=== PATIENT | male | born 1960 ===

== ENCOUNTER 2018-02-07 17:22 | Emergency (ER) | payer OTHER ==
[~2018-02-07] VITALS: Ht 167.6 cm; Wt 108.9 kg
[~2018-02-07 17:22] MED LIST: ALBUTEROL2.5 MG/3 M IH; CATAFLAM50 MG PO; FLONASE16 GM NS; FLOVENT DISKU250 MCG IH; GILTUSS TR TAB1 EACH PO; HUMIBID DM TABLET SA PO; LEVAQUIN750 MG PO; METFORMIN HCL500 MG PO; PROAIR HFA8.5 GM IH; PROVENTIL3 ML/2.5 M IH; SYNTHROID75 MCG; SYNTHROID75 MCG PO; Synthroid PO; TESSALON200 MG PO; TUSNEL DIABETI118 ML PO; VOLTAREM 50 MG; ZITHROMAX500 MG PO; ZOCOR20 MG PO; ZYRTEC10 MG PO; ZoCOR 20MG TABLET PO
[2018-02-08] MEDS ORDERED: DICY20TA PO (15:06)
== END 2018-02-07 18:18 | disposition home or self-care (01) ==
LOC: ER 17:22
DX: R10.11 Right upper quadrant pain (principal)

== ENCOUNTER 2018-02-08 09:07 | Emergency (ER) | payer OTHER ==
[2018-02-08] MEDS ORDERED: DICY20TA PO (15:06)
== END 2018-02-08 15:24 | disposition home or self-care (01) ==
LOC: ER 09:07
DX: N20.0 Calculus of kidney (principal); R10.11 Right upper quadrant pain

== ENCOUNTER 2021-01-16 16:17 | Emergency (ER) | payer OTHER ==
[~2021-01-16] VITALS: Ht 167.6 cm; Wt 108.0 kg
[~2021-01-16 16:17] MED LIST changes: +DICY20TA PO
[2021-01-16] MEDS ORDERED: SYNTHROID112 MCG (16:22)
[2021-01-16] MEDS ORDERED: SIMVASTATIN5 MG (16:22)
== END 2021-01-16 21:31 | disposition home or self-care (01) ==
LOC: ER 16:17
DX: R33.8 Other retention of urine (principal)